=== PATIENT | female | born 1950 | race Two or more races ===

== ENCOUNTER 2020-08-21 17:44 | Emergency (ER) | payer MEDICARE, OTHER ==
[~2020-08-21] VITALS: Ht 165.1 cm; Wt 96.2 kg
[2020-08-21 22:50] LABS: Basophils # (auto) 0.1 10 ^3/uL (0-0.2); Basophils % (auto) 0.3 % (0.0-2.0); Eosinophils # (auto) 0 10 ^3/uL (0-0.8); Hematocrit 47.7 % (36.0-46.0); Hemoglobin 15.6 g/dL (12.2-16.2); Lymphocytes # (auto) 0.4 10 ^3/uL (0.4-5.4); Lymphocytes % (auto) 1.8 % (10.0-50.0); Mean Corpuscular Hemoglobin 30.2 pg (28.0-32.0); Mean Corpuscular Hgb Conc. 32.7 g/dL (32.0-36.0); Mean Corpuscular Volume 92.3 fL (80.0-100.0); Monocytes % (auto) 4.6 % (0.0-12.0); Neutrophils # (auto) 21.1 10 ^3/uL (1.6-8.6); Neutrophils % (auto) 93.3 % (37.0-80.0); Nucleated Red Blood Cells % 0.2 %; Platelet Count (auto) 207 10^3/uL (140-450); Red Blood Cells 5.17 10^6/uL (4.0-5.20); Red Cell Distribution Width 13.2 % (11.8-14.3); White Blood Cell 22.6 10^3/uL (4.4-10.8)
[2020-08-21 22:58] LABS: Albumin 3.7 g/dL (3.4-5.0); Calcium 9.3 mg/dL (8.5-10.1); Potassium 3.8 mmol/L (3.5-5.1)
[2020-08-21 22:59] LABS: INR 1.02 (0.9-1.15); Partial Thromboplastin Time 24.6 sec (23.0-31.2)
[2020-08-21 23:09] LABS: BUN/Creatinine Ratio 17.6; Bilirubin, Total 0.6 mg/dL (0.2-1.0); Total Protein 7.5 g/dL (6.4-8.2)
[2020-08-21] MEDS ORDERED: ACETAMINOPHEN 325 MG TAB PO ONE (23:45)
[2020-08-22] MEDS ORDERED: levoFLOXacin 250 MG TAB PO ONE (02:00)
[2020-08-22 02:09] VITALS: BP 89/49
== END 2020-08-22 01:51 | disposition home or self-care (01) ==
LOC: EDBD 17:44 → ER 17:44
DX: J06.9 Acute upper respiratory infection, unspecified (principal); D72.829 Elevated white blood cell count, unspecified; Z20.828 Contact with and (suspected) exposure to other viral communicable diseases
CPT/HCPCS: 36415; 71045; 80053; 85025; 85610; 85730; 87040; 87426